=== PATIENT | female | born 1990 | race Caucasian/White ===

== ENCOUNTER 2016-09-19 13:11 | Day surgery (SDC) | payer SELFPAY ==
[2016-09-19 15:05] LABS: Basophils % (Auto) 0.4 % (0.0-1.8); Eosinophils % (Auto) 0.4 % (0.0-4.3); Hematocrit 36.9 % (30.3-42.9); Hemoglobin 12.7 gm/dl (10.1-14.3); Mean Corpuscular HGB Conc 34 % (30-34); Mean Corpuscular Hemoglobin 30 pg (28-32); Mean Corpuscular Volume 86 fl (79-97); Platelet Count 257 K/mm3 (140-440); Red Cell Distribution Width 14.5 % (13.2-15.2); White Blood Count 10.5 K/mm3 (4.5-11.0)
[2016-09-19 15:26] LABS: Bilirubin,Urine NEG (Negative); Blood,Urine NEG (Negative); Ketones,Urine 20 mg/dL (Negative); Leukocyte Esterase,Urine NEG (Negative); Mucus,Urine 3+ /HPF; Nitrite,Urine NEG (Negative); Protein,Urine <15 mg/dL mg/dL (Negative); Urobilinogen,Urine < 2.0 mg/dL (<2.0)
--- NOTE | 2016-09-19 16:57 | Ultrasound Report ---
FINAL REPORT PROCEDURE: Transabdominal pelvic ultrasound. TECHNIQUE: Real-time transabdominal sonography in multiple planes of pelvis was performed with image documentation. This examination was performed without Doppler. Vascular abnormalities, including ovarian torsion, will not be detectable without Doppler evaluation. CPT 80008 HISTORY: Left lower pelvic pain, bleeding, . COMPARISON: No prior studies are available for comparison. FINDINGS: Image quality is limited because scanning was done with an empty bladder. The uterus measures 9.2 centimeters x 4.8 centimeters x 6.0 centimeters. The myometrium is grossly normal. The endometrial echo complex is thickened measuring 2.1 centimeters. There is no evidence of an intrauterine gestational sac. The right ovary appears normal in size and may contain a small cyst. The left ovary is not definitely visualized. IMPRESSION: Limited study. No definite intrauterine gestational sac.
--- NOTE | 2016-09-19 17:03 | Ultrasound Report ---
FINAL REPORT PROCEDURE: Transvaginal pelvic ultrasound with Doppler. TECHNIQUE: Real-time transvaginal sonography in multiple planes of the pelvis was performed with image documentation. Grayscale, color flow Doppler imaging and velocity spectral waveform analysis of the ovaries was employed (duplex imaging). CPT 88525 and 40857 HISTORY: Left lower pelvic pain, bleeding, . COMPARISON: No prior studies are available for comparison. FINDINGS: The uterus measures approximately 9.2 centimeters x 4.8 centimeters x 6.0 centimeters. The myometrium appears uniform. The endometrium is thickened. There is no evidence of an intrauterine gestational sac. The right ovary is normal in size. There may be a corpus luteum cyst present. The left ovary contains a large cyst measuring 4.4 centimeters. There is also a left adnexal mass which appears to contain a pole and yolk sac. A heart rate was detected by Doppler analysis at 73 beats per minute. There is minimal free fluid in the cul-de-sac. IMPRESSION: Left-sided ectopic .
[2016-09-19] MEDS ORDERED: MORPHINE IV ONE (17:24)
[2016-09-19] MEDS ORDERED: ZOFRAN IV ONE (17:24)
[2016-09-19] MEDS ORDERED: MORPHINE ONE (17:27)
--- NOTE | 2016-09-19 17:28 | Emergency Department Report ---
HPI - General Chief Complaint: Vaginal Bleeding Time Seen by Provider: 09/19/16 17:14 - HPI HPI: Room 26 The patient is a 26-year-old female presenting with a chief complaint of ectopic . The patient states she has had left lower quadrant pelvic pain intermittently for the past 3 days. Patient went to see her WIRE COATER today and had an ultrasound performed in the office. The patient was informed she has an ectopic and was instructed to come to the ED. Patient admits to vaginal spotting. The patient currently gives her pain a score of 6/10 Location: Left pelvis Duration: 3 days Quality: Pain Severity: 6/10 Modifying factors: [see above] Context: [see above] Mode of transportation: [not driving] ED Past Medical Hx - Past Medical History Previous Medical History?: No - Family History Family history: no significant - Social History Smoking Status: Never Smoker Substance Use Type: None - Medications Home Medications: Home Medications Medication Instructions Recorded Confirmed Last Taken Type No Known Home Medications [No 09/19/16 09/19/16 Unknown History Reported Home Medications] ED Review of Systems ROS: Stated complaint: 6WKS PREG WITH PAIN Other details as noted in HPI Comment: All other systems reviewed and negative Constitutional: denies: chills, fever Eyes: denies: eye pain, eye discharge, vision change ENT: denies: ear pain, throat pain Respiratory: denies: cough, shortness of breath, wheezing Cardiovascular: denies: chest pain, palpitations Endocrine: no symptoms reported Gastrointestinal: abdominal pain Genitourinary: abnormal menses Musculoskeletal: denies: back pain, joint swelling, arthralgia Skin: denies: rash, lesions Neurological: denies: headache, weakness, paresthesias Psychiatric: denies: anxiety, depression Hematological/Lymphatic: denies: easy bleeding, easy bruising Physical Exam - Physical Exam Vital Signs: Vital Signs 09/19/16 09/19/16 14:29 16:34 Temperature 97.8 F Pulse Rate 92 H Respiratory 17 17 Rate Blood Pressure 102/62 O2 Sat by Pulse 100 100 Oximetry Physical Exam: GENERAL: The patient is well-developed well-nourished female lying on stretcher not appearing to be in acute distress. [] HEENT: Normocephalic. Atraumatic. Extraocular motions are intact. Patient has moist mucous membranes. NECK: Supple. Trachea midline CHEST/LUNGS: Clear to auscultation. There is no respiratory distress noted. HEART/CARDIOVASCULAR: Regular. There is no tachycardia. There is no gallop rub or murmur. ABDOMEN: Abdomen is soft, with mild discomfort to palpation of the left lower quadrant. Patient has normal bowel sounds. There is no abdominal distention. SKIN: There is no rash. There is no edema. There is no diaphoresis. NEURO: The patient is awake, alert, and oriented. The patient is cooperative. The patient has normal speech MUSCULOSKELETAL:There is no evidence of acute injury. ED Course Vital Signs 09/19/16 09/19/16 14:29 16:34 Temperature 97.8 F Pulse Rate 92 H Respiratory 17 17 Rate Blood Pressure 102/62 O2 Sat by Pulse 100 100 Oximetry - Consultations Consultation #1: 09/19/16 17:23 Patient's W[employer] paged ([phone]) 09/19/16 18:[address] Hyltno ED Medical Decision Making - Lab Data Result diagrams: 09/19/16 14:39 Laboratory Tests 09/19/16 09/19/16 09/19/16 14:39 14:39 14:40 WBC 10.5 RBC 4.30 Hgb 12.7 Hct 36.9 MCV 86 MCH 30 MCHC 34 RDW 14.5 Plt Count 257 Lymph % (Auto) 24.1 [place] % (Auto) 4.2 Eos % (Auto) 0.4 Baso % (Auto) 0.4 Lymph # 2.5 [place] # 0.4 Eos # 0.0 Baso # 0.0 Seg Neutrophils % 70.9 H Seg Neutrophils # 7.4 HCG, Quant 2794 H Urine Color Urine Turbidity Urine pH Ur Specific [place] Urine Protein Urine Glucose (UA) Urine Ketones Urine Blood Urine Nitrite Urine Bilirubin Urine Urobilinogen Ur Leukocyte Esterase Urine WBC (Auto) Urine RBC (Auto) U Epithel Cells (Auto) Urine Mucus Blood Type O POSITIVE Antibody Screen TNR VANITA Antibody Screen Negative 09/19/16 14:45 WBC RBC Hgb Hct MCV MCH MCHC RDW Plt Count Lymph % (Auto) [place] % (Auto) Eos % (Auto) Baso % (Auto) Lymph # [place] # Eos # Baso # Seg Neutrophils % Seg Neutrophils # HCG, Quant Urine Color Yellow Urine Turbidity Clear Urine pH 6.0 Ur Specific [place] 1.024 Urine Protein <15 mg/dl Urine Glucose (UA) Neg Urine Ketones 20 Urine Blood Neg Urine Nitrite Neg Urine Bilirubin Neg Urine Urobilinogen < 2.0 Ur Leukocyte Esterase Neg Urine WBC (Auto) 1.0 Urine RBC (Auto) 1.0 U Epithel Cells (Auto) 3.0 Urine Mucus 3+ Blood Type Antibody Screen VANITA Antibody Screen - Radiology Data Radiology results: report reviewed (pelvic ultrasound), image reviewed (pelvic ultrasound) Pelvic ultrasound (read by radiologist)-left-sided ectopic . - Differential Diagnosis ectopic Critical care attestation.: If time is entered above; I have spent that time in minutes in the direct care of this critically ill patient, excluding procedure time. ED Disposition Clinical Impression: Ectopic Disposition: OP ADMITTED IP TO THIS HOSP Is pt being admited?: Yes Does the pt Need Aspirin: No Condition: Serious Referrals: PRIMARY CARE, [Primary Care Provider] - 3-5 Days Time of Disposition: 18:57 (admitted to the OR)
[2016-09-19] MEDS ORDERED: TYLENOL ONE (17:36)
[2016-09-19] MEDS ORDERED: TYLENOL PO ONE (17:52)
--- NOTE | 2016-09-19 18:41 | Short Stay Summary ---
Short Stay Documentation Date of service: 09/19/16 Narrative H&P: Patient is a 26-year-old HF LMP 08/04/16 female presents to [facility] ER with a chief complaint of ectopic . She has had left lower quadrant pelvic pain and vaginal spotting intermittently for the past 3 days, so she went to see her [employer] ([employer] ) today and had an ultrasound performed in the office. The patient was informed she has an ectopic , and was instructed to come to the ED. The patient currently gives her pain a score of 6 /10 Her H/H is 12.7/36.9 and BHCG is 2794 Pelvic u/s shows a live left ectopic - History Principal diagnosis: Left ectopic H&P: obtained from office Past Medical History: No medical history Past Surgical History: No surgical history Social history: no significant social history, single - Allergies and Medications Current Medications: Allergies No Known Allergies Allergy (Verified 09/19/16 14:36) Home Medications Medication Instructions Recorded Confirmed Last Taken Type No Known Home Medications [No 09/19/16 09/19/16 Unknown History Reported Home Medications] Active Medications Cefazolin Sodium (Ancef/Sterile Water 2 Gm/20 Ml) 2 gm in 20 mls @ 80 mls/hr IV PREOP NR PRN Reason: Protocol - Physical exam General appearance: mild distress Integumentary: no rash HEENT: Atraumatic Lungs: Clear to auscultation Breasts: deferred Heart: Regular rate Gastrointestinal: normal Female Genitourinary: deferred Rectal Exam: deferred Extremities: No edema Neurological: Normal speech - Brief post op/procedure progress note Date of procedure: 09/19/16 Pre-op diagnosis: Left ectopic Post-op diagnosis: other (Hematoperitoneum) Procedure: Laproscopic left partial salpingectomy Anesthesia: GETA Findings: A normal uterus with a large mass in the distal portion of the left fallopian tube. Normal right fallopian tube. Normal ovaries bilaterally. ~ 50mls of hematoperitonuem. Surgeon: HALEY SMITH Estimated blood loss: 50-100ml Pathology: list (left fallopian tube) Specimen disposition: to lab Condition: stable - Hospital course Hospital course: Unremarkable. - Disposition Condition at discharge: Good Disposition: DISCHARGED TO HOME OR SELFCARE - Discharge Diagnoses (1) Ectopic Status: Acute Qualifiers: Location of ectopic : tubal Intrauterine status: without intrauterine Qualified Code(s): O00.10 - Tubal without intrauterine Short Stay Discharge Plan Activity: no restrictions Diet: regular Wound: open to air, keep clean and dry Follow up with: PRIMARY CARE, [Primary Care Provider] - 3-5 Days HALEY GAN MD [Staff Physician] - 7 Days Prescriptions: HYDROcodone/APAP 5-325 [[place] 5/325] 1 each PO Q6HR PRN #30 tablet PRN Reason: Pain
[2016-09-19] MEDS ORDERED: ANCEF/STERILE WATER 2 GM/20 ML 2 GM/20 ML SYRINGE IV NR (19:00)
[2016-09-19] MEDS ORDERED: LACTATED RINGERS 1,000 ML IV SCH (19:00)
--- NOTE | 2016-09-19 19:02 | Admit Criteria Form ---
Admission Criteria Documentation: OBSTETRIC AND GYNECOLOGIC DISEASE GRG Clinical Indications for Admission to Inpatient Care (Place 'X' for any and all applicable criteria): Hospital admission is needed for appropriate care of the patient because of 1 or more of the following (1)(2)(3): [ ]I. Hemodynamic instability, as indicated by 1 or more of the following (1)( 2)(3)(4)(5): [ ]a) Vital signs or other findings not as expected for chronic patient condition or baseline [ ]b) Instability indicated by 1 or more of the following: [ ]i) Hypotension [ ]ii) Symptomatic tachycardia unresponsive to treatment (eg, analgesia, fluids, sedation as indicated) [ ]iii) Inadequate perfusion indicated by 1 or more of the following: [ ]A. Lactic acidosis (greater than 2 mmol/ L) [ ]B. New abnormal capillary refill ( greater than 3 seconds) [ ]C. Reduced urine output [ ]D. New altered mental status [ ]iv) Orthostatic vital sign changes unresponsive to treatment (eg, fluids) [ ]v) Multiple IV fluid boluses required to maintain adequate blood pressure or perfusion [ ]vi) IV inotropic or vasopressor medication required to maintain adequate blood pressure or perfusion [ ]II. Obstetric infection requiring hospitalization indicated by 1 or more of the following(13)(14): [ ]a) Chorioamnionitis [ ]b) Endometritis (except mild endometritis) [ ]c) Pelvic abscess [ ]d) Peritonitis [ ]e) Septic pelvic thrombophlebitis [ ]III. Amniotic fluid or pulmonary embolism(4)(5)(6) [X]IV. Suspected peritonitis or ectopic requiring monitoring beyond scope of 24 hours or observation care(7)(8) [ ]V. compromise requiring hospitalization indicated by ALL of the following(9)(10): [ ]a) compromise indicated by 1 or more of the following(11): [ ]i) Abnormal heart rate monitoring [ ]ii) Abnormal contraction stress test [ ]iii) Abnormal biophysical profile [ ]iv) Abnormal Doppler flow in vessels (ie, Doppler velocimetry) (12) [ ]b) Persistence of compromise indicators during evaluation and observation monitoring [ ]. Ovarian hyperstimulation syndrome requiring hospitalization[A] indicated by ALL of the following(15): [ ]a) Recent ovarian stimulation with gonadotropins, or evidence on ultrasound of spontaneous emergence of large number of ovarian follicles [ ]b) Evidence of severe ovarian hyperstimulation syndrome indicated by 1 or more of the following: [ ]i) Abdominal pain unresponsive to oral therapy [ ]ii) Acute respiratory distress syndrome [ ]iii) Electrolyte imbalance ( eg, hyponatremia, hyperkalemia) [ ]iv) Elevated liver enzymes [ ]v) Evidence of thromboembolism [ ]vi) Hemoconcentration (hematocrit greater than 45 % (0.45)) [ ]vii) Inability to maintain oral intake adequate to prevent hemoconcentration [ ]viii) Marked hypotension from baseline (eg, SBP 20 mmHg below patients usual pressure) [ ]ix) Oliguria or anuria [ ]x) Ovarian torsion [ ]xi) Pleural or pericardial effusion on x-ray or echocardiogram [ ]xii) Rapid increase in serum creatinine to greater than 1.2 mg/dL (106 micromoles/L) or creatinine clearance less than 50 mL/min/1.73m2 (0.84 mL/ sec/1.73m2) [ ]xiii) Ruptured ovarian cyst with hemorrhage [ ]xiv) Severe abdominal pain or peritoneal signs [ ]xv) Tense ascites that cannot be managed with paracentesis in outpatient setting [ ]VII.Pelvic infection requiring hospitalization indicated by 1 or more of the following (16): [ ]a) Outpatient treatment has failed or is not appropriate (eg, inpatient monitoring required) [ ]b) Pelvic abscess [ ]c) Surgical emergency cannot be excluded (eg, rigid abdomen) [ ]d) Vomiting precluding outpatient and observation care management VIII. loss complications requiring inpatient medical treatment indicated by 1 or more of the following (4)(7)(9): [ ]a) Fever [ ]b) Peritonitis [ ]c) Sepsis [ ]d) Severe abdominal pain [ ]IX. or patient requiring monitoring for severe heart failure, pulmonary disease, or other comorbid condition (eg, peripartum cardiomyopathy) (4)(17) [ ]X. patient with rupture of membranes requiring hospitalization indicated by ANY ONE of the following: [ ]a) Chorioamnionitis, cloudy amniotic fluid, or other evidence of infection [ ]b) compromise or other need for monitoring (11) [ ]c) Gestation longer than 23 weeks and ANY ONE of the following: [ ]i) Abnormal (noncephalic) presentation [ ]ii) Inadequate home environment (eg, home too far from hospital, unable to rapidly return to hospital) [ ]d) Temperature greater than 100.4 degrees F (38 degrees C)( oral) [ ]e) Threatened labor requiring monitoring beyond scope (eg, over 24 hours) of observation Care [ ] XI. complications, including severe lacerations, infections, or retained placenta (19) [ ] XII.Uterine bleeding with high-risk features indicated by ANY ONE of the following (4): [ ]a) Active major hemorrhage (eg, hemorrhage) [ ]b) Coagulopathy with active bleeding [ ]c) Gestational trophoblastic disease (eg, molar ) (20 ) [ ]d) (longer than 23 weeks) and ANY ONE of the following: [ ]i) Pain [ ]ii) Placental abruption, known or suspected [ ]iii) Placenta accrete, known or suspected(21) [ ]iv) Placenta previa, known or suspected [ ]v) Vasa previa [ ]e) Severe anemia [ ]XIII. Obstetric or Gynecologic Disease, condition or symptom for which ANY ONE of the following: [ ]a) Emergency and observation care have failed or are not considered appropriate ( Also use General Criteria: Observation Care Criteria as appropriate) [ ]b) Presence of a General Admission Criteria or Pediatric General Admission Criteria The original [facility] [address] content created by [facility] has been revised. The portions of the content which have been revised are identified through the use of italic text or in bold, and [facility] has neither reviewed nor approved the modified material.All other unmodified content is copyright [facility]. Please see references footnoted in the original [facility] edition 2016 Admission Criteria Met: Yes
--- NOTE | 2016-09-19 20:33 | Anesthesia Day of Surgery ---
Anesthesia Day of Surgery - Day of Surgery Patient Examined: Yes Patient H&P Reviewed: Yes Patient is NPO: Yes
--- NOTE | 2016-09-19 20:33 | Anesthesia Consultation ---
Anesthesia Consult and Med Hx Date of service: 09/19/16 - Airway Anesthetic Teeth Evaluation: Good ROM Head & Neck: Adequate Mental/Hyoid Distance: Adequate Mallampati Class: Class II Intubation Access Assessment: Good - Cardiac Exam Cardiac Exam: RRR - Pre-Operative Health Status ASA Pre-Surgery Classification: ASA2, Emergency Proposed Anesthetic Plan: General - Pre-Anesthesia Comment Pre-Anesthesia Comments: history via tile erector . - Pulmonary Hx Smoking: Yes Hx Pneumonia: No - Central Nervous System Hx Psychiatric Problems: No - Endocrine Hx End Stage Renal Disease: No Hx Hypothyroidism: No Hx Hyperthyroidism: No - Hematic Hx Anemia: No - Other Systems Hx Alcohol Use: No
[2016-09-19] MEDS ORDERED: NORCO 5/325 PO PRN (20:34)
[2016-09-19] MEDS ORDERED: DILAUDID IV PRN (20:34)
[2016-09-19] MEDS ORDERED: ZOFRAN IV PRN (20:34)
[2016-09-19] MEDS ORDERED: LACTATED RINGERS 1,000 ML ONE ×3 (20:50→22:39)
[2016-09-19] MEDS ORDERED: ANCEF/STERILE WATER 2 GM/20 ML 2 GM/20 ML SYRINGE IV ONE (20:57)
[2016-09-19] MEDS ORDERED: PEPCID IV ONE (20:57)
[2016-09-19] MEDS ORDERED: PEPCID IV NR (21:00)
[2016-09-19] MEDS ORDERED: DILAUDID ONE (21:06)
[2016-09-19] MEDS ORDERED: DIPRIVAN 10 MG/ML IV ONE (21:06)
[2016-09-19] MEDS ORDERED: MARCAINE 0.5% INFILTRATI ONE (21:26)
[2016-09-19] MEDS ORDERED: NACL 0.9% IR ONE (21:26)
[2016-09-19] MEDS ORDERED: XYLOCAINE MPF 2% ONE (21:37)
[2016-09-19] MEDS ORDERED: REGLAN ONE (21:37)
[2016-09-19] MEDS ORDERED: ZOFRAN ONE ×2 (21:38→23:41)
[2016-09-19] MEDS ORDERED: ZEMURON IV ONE (21:38)
[2016-09-19] MEDS ORDERED: TORADOL ONE (21:39)
[2016-09-19] MEDS ORDERED: MARCAINE 0.5% 30 ML INFILTRATI ONE (21:46)
[2016-09-19] MEDS ORDERED: NEOSTIGMINE ONE (22:04)
[2016-09-19] MEDS ORDERED: ROBINUL ONE (22:04)
[2016-09-19] MEDS ORDERED: VERSED ONE (22:24)
--- NOTE | 2016-09-19 22:24 | Operative Report ---
Operative Report Operative Report: Date of procedure: 09/19/2016 Pre-operative diagnosis: Left ectopic Post-operative diagnosis: Same with hematoperitoneum Procedure name(s): Laparoscopic left partial salpingectomy Surgeon: Al Hylton MD Taker Away: None Anesthesia: General endotracheal intubation by Dr. Russell EBL: 50 mL's Findings: A normal uterus with a large mass in the distal portion of the left fallopian tube. Normal right fallopian tube. Normal ovaries bilaterally. Approximately 50 mL hematoperitoneum Procedure: After the patient was correctly identified, and after general anesthesia was administered, she was prepped and draped in usual sterile fashion and placed in dorsal lithotomy position. First the bladder was catheterized using Busch catheter. Next the speculum was placed in vaginal vault and the anterior lip of the cervix was grasped using a single-tooth tenaculum. The uterine manipulator was then placed and the tenaculum and speculum were removed. Attention was then turned to the abdomen where first a periumbilical incision was made using the skin knife and the Optiview trocar was inserted under direct visualization. After an adequate amount of abdominal insufflation, visualization of the pelvic organs found the uterus to be normal with a large mass in the distal portion of the left fallopian tube. The left fallopian tube was normal, and both ovaries appeared to be normal. There was approximately 50 mls of hematoperitoneum in the cul-de-sac. Next a suprapubic and the left lateral incision was made through which 5 mm trochars were placed in order to aid in manipulation of the pelvic organs. The distal portion of the left fallopian tube was excised using the tripolar cautery, first by clamping cauterizing and cutting the distal portion of the fallopian tube and along the mesosalpinx. The fallopian tube was then placed in the Endopouch and sent to pathology. Copious amounts of irrigation was performed, and after good hemostasis was assured, the procedure was considered complete. Tisseel was sprayed over the salpingectomy site. All instruments were then removed from abdomen, the abdomen deflated, and the periumbilical incision was closed using the the [place] om[place] device and 0 Vicryl suture in a [id number] configuration. The skin edges were reapproximated using 4-0 Monocryl suture in a subcuticular fashion. The suprapubic and left lateral incisions were closed in similar fashion. Each incision was infiltrated using 0.5% Marcaine solution. The uterine manipulator was removed. The Busch catheter also removed. The patient tolerated the procedure well was transported to recovery in stable condition.
--- NOTE | 2016-09-19 22:53 | Post Anesthesia Evaluation ---
- Post Anesthesia Evaluation Patient Participated: Yes Airway Patent: Yes Stable Respiratory Function: Yes Temp > 96.8F: Yes Pain Manageable: Yes Adequeate Hydration: Yes Anesthesia Complications: No Block Receding Appropriately: Not Applicable
[2016-09-19] MEDS: ZOFRAN IV PRN (23:55)
[2016-09-20] MEDS: ZOFRAN IV PRN (00:08)
[2016-09-20 00:20] VITALS: BP 112/60
== END 2016-09-19 23:14 | disposition home or self-care (01) ==
LOC: ED 13:11 → OR 23:13
PROVIDERS: ATTEND Obstetrics & Gynecology
DX: O00.90 Unspecified ectopic pregnancy without intrauterine pregnancy (principal); K66.1 Hemoperitoneum; Z87.891 Personal history of nicotine dependence
CPT/HCPCS: 36415; 59151; 76801; 76817; 81001; 84702; 85025; 86850; 86900; 86901; 88305; C9250; J0690; J1170; J1885; J2250; J2405; J2704; J2710; J2765; J7120; J2270

== ENCOUNTER 2017-02-16 21:44 | Emergency (ER) | payer SELFPAY ==
[2017-02-16 23:41] LABS: Basophils % (Auto) 0.4 % (0.0-1.8); Eosinophils % (Auto) 1.9 % (0.0-4.3); Hematocrit 40.8 % (30.3-42.9); Hemoglobin 13.4 gm/dl (10.1-14.3); Mean Corpuscular HGB Conc 33 % (30-34); Mean Corpuscular Hemoglobin 29 pg (28-32); Mean Corpuscular Volume 88 fl (79-97); Platelet Count 279 K/mm3 (140-440); Red Blood Count 4.66 M/mm3 (3.65-5.03); Red Cell Distribution Width 14.4 % (13.2-15.2); White Blood Count 9.7 K/mm3 (4.5-11.0)
[2017-02-16 23:43] LABS: Anion Gap 16 mmol/L; Blood Urea Nitrogen 11 mg/dL (7-17); Calcium 8.8 mg/dL (8.4-10.2); Carbon Dioxide 24 mmol/L (22-30); Chloride 103.2 mmol/L (98-107); Glucose 97 mg/dL (65-100); Potassium 4.6 mmol/L (3.6-5.0); Sodium 139 mmol/L (137-145)
--- NOTE | 2017-02-17 00:32 | Ultrasound Report ---
FINAL REPORT EXAM: US OB \T\lt; = 14 WEEKS FETUS HISTORY: bleeding TECHNIQUE: Transabdominal imaging was pain in the pelvis. FINDINGS: The uterus measures 8.0 cm x 3.8 cm x 5.4 cm. The endometrial thickness is 9.5 millimeters. There is no evidence of an intrauterine or retained products of conception at this time. Free fluid is not seen. The maternal right ovary is normal size contour and echotexture measuring 2.3 cm x 2.2 cm x 1.5 cm. The left ovary is enlarged measuring 6 cm x 5.9 cm x 3.7 cm. Within the left ovary is an anechoic cyst measuring 5.4 cm. IMPRESSION: No evidence of an intrauterine at this time. Given the positive test, the findings compatible with a complete . 5.4 cm left ovarian cyst.
--- NOTE | 2017-02-17 00:33 | Ultrasound Report ---
FINAL REPORT EXAM: US OB TRANSVAGINAL HISTORY: bleeding TECHNIQUE: Transvaginal imaging was obtained of the pelvis. FINDINGS: The uterus measures 8.0 cm x 3.8 cm x 5.4 cm. There is no evidence of an intra at this time. The endometrial thickness is 9.5 millimeters. Free fluid is not seen. The right ovary is normal size contour and echotexture measuring 2.3 cm x 2.2 cm x 1.5 cm. The left ovary is enlarged measuring 6.0 cm x 5.9 cm x 3.7 cm. Within the left ovary is an anechoic cyst measuring 5.4 cm. IMPRESSION: No evidence of an IUP at this time as described. 5.4 cm left ovarian cyst.
[2017-02-17 07:19] VITALS: BP 97/64
--- NOTE | 2017-02-17 07:38 | Emergency Department Report ---
HPI - General Chief Complaint: Vaginal Bleeding Time Seen by Provider: 02/17/17 07:18 - HPI HPI: Room 8 The patient is a 27-year-old female presented with chief complaint of developing vaginal bleeding. Patient states yesterday morning she developed suprapubic abdominal pain and noticed vaginal bleeding with clots whenever she sat down to urinate. Patient also developed low back pain and decided to come to the emergency department for evaluation. Patient took a home test which was positive approximately 3 days ago but has not yet seen an [employer]. Patient currently denies pain Location: Pelvis Duration: Minutes since yesterday Quality: Pain Severity: Currently 0/10 Modifying factors: [see above] Context: [see above] Mode of transportation: [not driving] ED Past Medical Hx - Past Medical History Previous Medical History?: No - Surgical History Additional Surgical History: left fallopian tube/ectopic - Family History Family history: no significant - Social History Smoking Status: Never Smoker Substance Use Type: None - Medications Home Medications: Home Medications Medication Instructions Recorded Confirmed Last Taken Type HYDROcodone/APAP 5-325 [[place] 1 each PO Q6HR PRN #30 tablet 09/19/16 Unknown Rx 5/325] ED Review of Systems ROS: Stated complaint: "5 WEEKS , VAGINAL BLEEDING Other details as noted in HPI Comment: All other systems reviewed and negative Constitutional: denies: chills, fever Eyes: denies: eye pain, eye discharge, vision change ENT: denies: ear pain, throat pain Respiratory: denies: cough, shortness of breath, wheezing Cardiovascular: denies: chest pain, palpitations Endocrine: no symptoms reported Gastrointestinal: abdominal pain Genitourinary: abnormal menses Musculoskeletal: back pain. denies: joint swelling, arthralgia Skin: denies: rash, lesions Neurological: denies: headache, weakness, paresthesias Psychiatric: denies: anxiety, depression Hematological/Lymphatic: denies: easy bleeding, easy bruising Physical Exam - Physical Exam Vital Signs: Vital Signs 02/16/17 02/16/17 02/17/17 22:31 22:46 07:17 Temperature 97.9 F 97.9 F 98 F Pulse Rate 69 70 Respiratory 18 18 17 Rate Blood Pressure 106/72 106/72 Blood Pressure 97/64 [Left] O2 Sat by Pulse 100 100 Oximetry Physical Exam: GENERAL: The patient is well-developed well-nourished female lying on stretcher not appearing to be in acute distress. [] HEENT: Normocephalic. Atraumatic. Extraocular motions are intact. Patient has moist mucous membranes. NECK: Supple. Trachea midline CHEST/LUNGS: Clear to auscultation. There is no respiratory distress noted. HEART/CARDIOVASCULAR: Regular. There is no tachycardia. There is no gallop rub or murmur. ABDOMEN: Abdomen is soft, nontender. Patient has normal bowel sounds. There is no abdominal distention. SKIN: There is no rash. There is no diaphoresis. NEURO: The patient is awake, alert, and oriented. The patient is cooperative. The patient has normal speech MUSCULOSKELETAL: There is no evidence of acute injury. ED Course Vital Signs 02/16/17 02/16/17 02/17/17 22:31 22:46 07:17 Temperature 97.9 F 97.9 F 98 F Pulse Rate 69 70 Respiratory 18 18 17 Rate Blood Pressure 106/72 106/72 Blood Pressure 97/64 [Left] O2 Sat by Pulse 100 100 Oximetry ED Medical Decision Making - Lab Data Result diagrams: 02/16/17 23:12 02/16/17 23:12 Laboratory Tests 02/16/17 02/16/17 02/16/17 23:12 23:12 23:12 WBC 9.7 RBC 4.66 Hgb 13.4 Hct 40.8 MCV 88 MCH 29 MCHC 33 RDW 14.4 Plt Count 279 Lymph % (Auto) 45.8 H [place] % (Auto) 5.2 Eos % (Auto) 1.9 Baso % (Auto) 0.4 Lymph # 4.5 [place] # 0.5 Eos # 0.2 Baso # 0.0 Seg Neutrophils % 46.7 Seg Neutrophils # 4.5 Sodium Potassium Chloride Carbon Dioxide Anion Gap BUN Creatinine Estimated GFR BUN/Creatinine Ratio Glucose Calcium HCG, Quant 17.01 H Blood Type O POSITIVE Antibody Screen Negative 02/16/17 23:12 WBC RBC Hgb Hct MCV MCH MCHC RDW Plt Count Lymph % (Auto) [place] % (Auto) Eos % (Auto) Baso % (Auto) Lymph # [place] # Eos # Baso # Seg Neutrophils % Seg Neutrophils # Sodium 139 Potassium 4.6 Chloride 103.2 Carbon Dioxide 24 Anion Gap 16 BUN 11 Creatinine 0.5 L Estimated GFR > 60 BUN/Creatinine Ratio 22.00 Glucose 97 Calcium 8.8 HCG, Quant Blood Type Antibody Screen - Radiology Data Radiology results: report reviewed (pelvic ultrasound), image reviewed (pelvic ultrasound) Pelvic ultrasound (read by radiologist)-no evidence of an IUP at this time. 5.4 cm left ovarian cyst - Medical Decision Making I discussed with the patient and family the concern for possible ectopic versus spontaneous versus threatened . Family verbalized understanding. They were informed to follow-up in 48 hours for repeat serum hCG level - Differential Diagnosis ectopic , threatened Critical care attestation.: If time is entered above; I have spent that time in minutes in the direct care of this critically ill patient, excluding procedure time. ED Disposition Clinical Impression: Threatened Disposition: [id number] TO HOME OR SELFCARE Is pt being admited?: No Does the pt Need Aspirin: No Condition: Stable Instructions: Threatened Miscarriage (ED), Ectopic (ED) Additional Instructions: Return to the emergency department immediately should you develop worsening symptoms, fever, inability to tolerate food or liquid or any other concerns. Referrals: PRIMARY CAREMD [Primary Care Provider] - 3-5 Days MARCIANO CHAHAL MD [Staff Physician] - 3-5 Days Time of Disposition: 07:40
[2017-02-17 07:59] LABS: Bacteria,Urine 2+ /HPF (Negative); Bilirubin,Urine NEG (Negative); Blood,Urine LG (Negative); Ketones,Urine TR mg/dL (Negative); Leukocyte Esterase,Urine SM (Negative); Mucus,Urine 2+ /HPF; Nitrite,Urine NEG (Negative); Urobilinogen,Urine < 2.0 mg/dL (<2.0)
[2017-02-17 08:02] LABS: RBC,Urine > 182.0 /HPF (0.0-6.0)
== END 2017-02-17 07:48 | disposition home or self-care (01) ==
LOC: ED 21:44
DX: O20.0 Threatened abortion (principal); Z3A.01 Less than 8 weeks gestation of pregnancy
CPT/HCPCS: 36415; 76801; 76817; 80048; 81001; 84702; 85025; 86850; 86900; 86901; 99284